=== PATIENT | male | born 1975 | race Caucasian/White ===

== ENCOUNTER 2018-02-17 10:50 | Inpatient (IN) | payer OTHER ==
[2018-02-17] MEDS ORDERED: ACETAMINOPHEN TAB 500 MG TAB PO STA (11:27)
[2018-02-17] MEDS ORDERED: SODIUM CHLORIDE 0.9% 1,000 ML IV STA (11:27)
--- NOTE | 2018-02-17 11:39 | ED ---
General Adult HPI - General Chief complaint: Abdominal Pain Stated complaint: poss flu Time Seen by Provider: 02/17/18 11:12 Source: patient Mode of arrival: ambulatory Limitations: no limitations - Related Data Home Medications Medication Instructions Recorded Confirmed [id number] 2 tab PO Q4HR PRN 02/17/18 02/17/18 [Excedrin] Ibuprofen [Motrin Ib] 800 mg PO Q6H PRN 02/17/18 02/17/18 Allergies Allergy/AdvReac Type Severity Reaction Status Date / Time No Known Allergies Allergy Verified 02/17/18 11:00 Review of Systems ROS Statement: Those systems with pertinent positive or pertinent negative responses have been documented in the HPI. ROS Other: All systems not noted in ROS Statement are negative. Past Medical History Past Medical History: No Reported History History of Any Multi-Drug Resistant Organisms: None Reported Past Surgical History: Hernia Repair Past Psychological History: No Psychological Hx Reported Smoking Status: Former smoker Past Alcohol Use History: Rare Past Drug Use History: None Reported General Exam Limitations: no limitations Course Vital Signs 02/17/18 10:52 Temperature 101 F H Pulse Rate 97 Respiratory 20 Rate Blood Pressure 147/97 O2 Sat by Pulse 99 Oximetry Medical Decision Making - Medical Decision Making Labs been reviewed and does show elevated bilirubin and alk phos along with liver enzymes. This appears new compared to previous labs. Patient states is not a drinker. He does admit that he's had some nausea vomiting over the last few days. Patient denies any specific abdominal pain. Ultrasound was obtained showing no evidence of cholecystitis. No cholelithiasis. Results were discussed with the patient. Results discussed with attending physician Dr. Almendarez did discuss with GI doctor Marie does recommend admission. Hepatitis panel is pending at this time. Patient will be admitted to Dr. Scanlon with consult to GI. - Lab Data Result diagrams: 02/17/18 11:30 02/17/18 11:30 Lab Results 02/17/18 02/17/18 02/17/18 Range/Units 11:30 11:30 11:30 WBC 7.3 (3.8-10.6) k/uL RBC 5.53 (4.30-5.90) m/uL Hgb 15.7 (13.0-17.5) gm/dL Hct 47.0 (39.0-53.0) % MCV 85.0 (80.0-100.0) fL MCH 28.4 (25.0-35.0) pg MCHC 33.4 (31.0-37.0) g/dL RDW 13.7 (11.5-15.5) % Plt Count 133 L (150-450) k/uL Neutrophils % 87 % Lymphocytes % 3 % Monocytes % 7 % Eosinophils % 1 % Basophils % 0 % Neutrophils # 6.4 (1.3-7.7) k/uL Lymphocytes # 0.3 L (1.0-4.8) k/uL Monocytes # 0.5 (0-1.0) k/uL Eosinophils # 0.1 (0-0.7) k/uL Basophils # 0.0 (0-0.2) k/uL Sodium 137 (137-145) mmol/L Potassium 3.9 (3.5-5.1) mmol/L Chloride 99 (98-107) mmol/L Carbon Dioxide 29 (22-30) mmol/L Anion Gap 9 mmol/L BUN 13 (9-20) mg/dL Creatinine 0.99 (0.66-1.25) mg/dL Est GFR (CKD-EPI)AfAm >90 (>60 ml/min/1.73 sqM) Est GFR (CKD-EPI)NonAf >90 (>60 ml/min/1.73 sqM) Glucose 119 H (74-99) mg/dL Plasma Lactic Acid Lul 1.2 (0.7-2.0) mmol/L Calcium 9.1 (8.4-10.2) mg/dL Total Bilirubin 5.0 H (0.2-1.3) mg/dL AST 132 H (17-59) U/L ALT 276 H (21-72) U/L Alkaline Phosphatase 227 H (38-126) U/L Total Protein 7.5 (6.3-8.2) g/dL Albumin 4.0 (3.5-5.0) g/dL Amylase 58 (30-110) U/L Lipase 66 (23-300) U/L Urine Color Urine Appearance (Clear) Urine pH (5.0-8.0) Ur Specific [place] (1.001-1.035) Urine Protein (Negative) Urine Glucose (UA) (Negative) Urine Ketones (Negative) Urine Blood (Negative) Urine Nitrite (Negative) Urine Bilirubin (Negative) Urine Urobilinogen (<2.0) mg/dL Ur Leukocyte Esterase (Negative) Urine RBC (0-5) /hpf Urine WBC (0-5) /hpf Ur Squamous Epith Cells (0-4) /hpf Urine Mucus (None) /hpf Influenza Type A RNA (Not Detectd) Influenza Type B (PCR) (Not Detectd) 02/17/18 02/17/18 Range/Units 12:10 12:48 WBC (3.8-10.6) k/uL RBC (4.30-5.90) m/uL Hgb (13.0-17.5) gm/dL Hct (39.0-53.0) % MCV (80.0-100.0) fL MCH (25.0-35.0) pg MCHC (31.0-37.0) g/dL RDW (11.5-15.5) % Plt Count (150-450) k/uL Neutrophils % % Lymphocytes % % Monocytes % % Eosinophils % % Basophils % % Neutrophils # (1.3-7.7) k/uL Lymphocytes # (1.0-4.8) k/uL Monocytes # (0-1.0) k/uL Eosinophils # (0-0.7) k/uL Basophils # (0-0.2) k/uL Sodium (137-145) mmol/L Potassium (3.5-5.1) mmol/L Chloride (98-107) mmol/L Carbon Dioxide (22-30) mmol/L Anion Gap mmol/L BUN (9-20) mg/dL Creatinine (0.66-1.25) mg/dL Est GFR (CKD-EPI)AfAm (>60 ml/min/1.73 sqM) Est GFR (CKD-EPI)NonAf (>60 ml/min/1.73 sqM) Glucose (74-99) mg/dL Plasma Lactic Acid Lul (0.7-2.0) mmol/L Calcium (8.4-10.2) mg/dL Total Bilirubin (0.2-1.3) mg/dL AST (17-59) U/L ALT (21-72) U/L Alkaline Phosphatase (38-126) U/L Total Protein (6.3-8.2) g/dL Albumin (3.5-5.0) g/dL Amylase (30-110) U/L Lipase (23-300) U/L Urine Color Dark Brown Urine Appearance Clear (Clear) Urine pH 6.0 (5.0-8.0) Ur Specific [place] 1.036 H (1.001-1.035) Urine Protein 2+ H (Negative) Urine Glucose (UA) Negative (Negative) Urine Ketones 3+ H (Negative) Urine Blood Trace H (Negative) Urine Nitrite Negative (Negative) Urine Bilirubin 3+ H (Negative) Urine Urobilinogen 8.0 (<2.0) mg/dL Ur Leukocyte Esterase Negative (Negative) Urine RBC 7 H (0-5) /hpf Urine WBC 4 (0-5) /hpf Ur Squamous Epith Cells <1 (0-4) /hpf Urine Mucus Many H (None) /hpf Influenza Type A RNA Not Detected (Not Detectd) Influenza Type B (PCR) Not Detected (Not Detectd) Disposition Clinical Impression: Nausea & vomiting, Elevated liver enzymes Disposition: ADMITTED IP TO THIS [facility] Condition: Good Is patient prescribed a controlled substance at d/c from ED?: No Referrals: Steve Scanlon DO [Primary Care Provider] - 1-2 days Time of Disposition: 14:50
[2018-02-17] MEDS ORDERED: ONDANSETRON 4 MG/2 ML VIAL IVP STA (11:49)
[2018-02-17 12:24] LABS: Basophils % (A) 0 %; Eosinophils # (A) 0.1 k/uL (0-0.7); Eosinophils % (A) 1 %; HGB 15.7 gm/dL (13.0-17.5); Lymphocytes # (A) 0.3 k/uL (1.0-4.8); Lymphocytes % (A) 3 %; MCH 28.4 pg (25.0-35.0); MCHC 33.4 g/dL (31.0-37.0); Mean Platelet Volume 7.4; Monocytes # (A) 0.5 k/uL (0-1.0); Monocytes % (A) 7 %; Neutrophils # (A) 6.4 k/uL (1.3-7.7); Neutrophils % (A) 87 %; Platelet Count 133 k/uL (150-450); RBC 5.53 m/uL (4.30-5.90); RDW 13.7 % (11.5-15.5); WBC 7.3 k/uL (3.8-10.6)
[2018-02-17 12:32] LABS: ALT 276 U/L (21-72); AST 132 U/L (17-59); Alkaline Phosphatase 227 U/L (38-126); Amylase 58 U/L (30-110); Anion Gap 9 mmol/L; Blood Urea Nitrogen 13 mg/dL (9-20); Calcium 9.1 mg/dL (8.4-10.2); Carbon Dioxide 29 mmol/L (22-30); Chloride 99 mmol/L (98-107); Glucose 119 mg/dL (74-99); Lipase 66 U/L (23-300); Potassium 3.9 mmol/L (3.5-5.1); Sodium 137 mmol/L (137-145); Total Protein 7.5 g/dL (6.3-8.2)
[2018-02-17 13:19] LABS: Appearance,Urine Clear (Clear); Bilirubin,Urine 3+ (Negative); Blood,Urine Trace (Negative); Color,Urine Dark Brown; Glucose,Urine (UA) Negative (Negative); Ketones,Urine 3+ (Negative); Leukocyte Esterase,Urine Negative (Negative); Mucus,Urine Many /hpf; Nitrite,Urine Negative (Negative); Protein,Urine 2+ (Negative); RBC,Urine 7 /hpf (0-5); Specific Gravity,Urine 1.036 (1.001-1.035); Squamous Epithelial Cell,Urine <1 /hpf (0-4)
--- NOTE | 2018-02-17 14:08 | US ---
EXAMINATION TYPE: US abdomen limited DATE OF EXAM: 02/17/2018 COMPARISON: NONE CLINICAL HISTORY: Pain. Nausea and vomiting. Elevated liver enzymes. patient ate 5 hours prior to exa m EXAM MEASUREMENTS: Liver Length: 16.5 cm Gallbladder Wall: 0.3 cm CBD: 0.4 cm Right Kidney: 11.6 x 6.2 x 4.8 cm Technical limitations due to large amount of overlying bowel content Pancreas: Obscured by bowel gas Liver: There is increased echogenicity of the hepatic parenchyma with diminished visualization of th e portal triads most commonly relating to hepatic steatosis and limiting evaluation for underlying he patic masses. Gallbladder: limited evaluation, contracted Evidence for sonographic Blackman's sign: no CBD: wnl as visualized Right Kidney: no evidence of hydronephrosis IMPRESSION: 1. The gallbladder is slightly contracted likely accounting for the prominent size of the gallbladder wall circumferentially. No common bile duct dilation or pericholecystic fluid to suggest acute mahamed cystitis. HIDA scan with CCK could assess for biliary dysfunction. 2. Findings suggesting mild degree hepatic steatosis.
[2018-02-17] MEDS ORDERED: NALOXONE 0.4 MG/ML 1 ML VIAL IV PRN (14:50)
[2018-02-17] MEDS ORDERED: SODIUM CHLORIDE 0.9% 1,000 ML IV ONE (14:50)
[2018-02-17 15:36] LABS: Hepatitis A AB IgM Index 0.01; Hepatitis A Antibody IgM NEGATIVE
[2018-02-17] MEDS: IBUPROFEN 600 MG TAB PO PRN (16:34)
[2018-02-17 18:42] LABS: Hepatitis B Core IgM Non-Reactive (Non-Reactive)
[2018-02-17] MEDS: ONDANSETRON 4 MG/2 ML VIAL IVP PRN (22:40)
[2018-02-18] MEDS: IBUPROFEN 600 MG TAB PO PRN ×3 (03:55→20:28)
[2018-02-18 07:16] LABS: INR 1.2 (<1.2); Prothrombin Time 12.4 sec (9.0-12.0)
[2018-02-18 07:27] LABS: ALT 182 U/L (21-72); AST 89 U/L (17-59); Albumin 3.1 g/dL (3.5-5.0); Alkaline Phosphatase 185 U/L (38-126); Anion Gap 8 mmol/L; Blood Urea Nitrogen 11 mg/dL (9-20); Calcium 8.1 mg/dL (8.4-10.2); Carbon Dioxide 27 mmol/L (22-30); Chloride 104 mmol/L (98-107); Glucose 131 mg/dL (74-99); Potassium 3.9 mmol/L (3.5-5.1); Sodium 139 mmol/L (137-145); Total Bilirubin 4.7 mg/dL (0.2-1.3); Total Protein 6.2 g/dL (6.3-8.2)
[2018-02-18 07:46] LABS: HCT 43.5 % (39.0-53.0); HGB 13.8 gm/dL (13.0-17.5); MCH 28.1 pg (25.0-35.0); MCHC 31.7 g/dL (31.0-37.0); MCV 88.6 fL (80.0-100.0); Mean Platelet Volume 7.8; Platelet Count 103 k/uL (150-450); RBC 4.92 m/uL (4.30-5.90); WBC 4.7 k/uL (3.8-10.6)
[2018-02-18 08:20] LABS: Band Neutrophils % 1 %; Lymphocytes # (M) 0.28 k/uL (1.0-4.8); Monocytes # (M) 0.28 k/uL (0-1.0); Neutrophils % (M) 87 %; Nucleated Red Blood Cells 0 /100 WBC (0-0); Total Cells Counted 100
[2018-02-18] MEDS: ONDANSETRON 4 MG/2 ML VIAL IVP PRN (11:07)
--- NOTE | 2018-02-18 11:31 | CONS ---
CONSULTATION DATE OF DICTATION: 02/18/2018 REASON FOR CONSULTATION: Abdominal pain and elevated LFTs. HISTORY OF PRESENT ILLNESS: The patient is a 42-year-old pleasant white male who came into the emergency room yesterday complaining of generalized abdominal pain with body aches and flu-like symptoms for the last 3 days' duration. Pain was mostly in the epigastric area and he had a low-grade fever associated with nausea and vomiting. Symptoms continued to persist and he started having dark-colored urine and hence came to the emergency room yesterday and was noted to have elevated LFTs and jaundice with a bilirubin of 5, AST of 132, ALT of 276 and alkaline phosphatase of 227. He was subsequently admitted to the hospital for further evaluation. He did have ultrasound of the gallbladder done that did not show any evidence of gallstones or biliary ductal dilation. The patient never had these symptoms in the past. Denies any new medications that were started recently. He denies any cmyd-eop-xazqgfp herbal medications. PAST MEDICAL HISTORY: Unremarkable. MEDICATIONS: Medications at home include multivitamin and Motrin as needed. ALLERGIES: NO KNOWN DRUG ALLERGIES. SOCIAL HISTORY: No smoking. No alcohol use. FAMILY HISTORY: Unremarkable. PAST SURGICAL HISTORY: Hernia repair. REVIEW OF SYSTEMS: CARDIOPULMONARY: No chest pain, shortness of breath. GENITOURINARY: No dysuria, hematuria. MUSCULOSKELETAL: Unremarkable. SKIN: Unremarkable. ENDOCRINE: Unremarkable. NEUROLOGY: Unremarkable. ENT/VISION: Unremarkable. CONSTITUTIONAL: No recent weight loss. No fever, chills, night sweats. PHYSICAL EXAMINATION: He appears comfortable. No apparent distress. Vital signs are stable. Blood pressure is 132/68, pulse rate 87, temperature 99.4. HEENT EXAMINATION: Unremarkable. Conjunctivae are pink, sclerae anicteric. Oral cavity with no lesions. NECK: No JVD or lymph node enlargement. Chest was clear to auscultation. HEART: Regular rate and rhythm. ABDOMEN: Soft. Mild tenderness in the epigastric area. Bowel sounds are positive. No organomegaly. EXTREMITIES: No pedal edema. SKIN: No rashes. NEUROLOGIC: Alert and oriented x3. No focal deficits. LABS: WBC 7.3, hemoglobin 15.7, platelets 133. Total bilirubin is 5, AST 132, ALT 276, alkaline phosphatase 227. Today total bilirubin is 4.7, AST 89, ALT 182, alkaline phosphatase 185. Hepatitis serologies for A, B and C were negative. Influenza A and B negative. Ultrasound of the gallbladder showed no evidence of gallstones. The gallbladder was slightly contracted. No biliary ductal dilation. IMPRESSION: This is a patient who presents to the hospital with diffuse abdominal pain, mostly in the epigastric area, associated with body aches and low-grade fever associated with nausea, vomiting for the last 3 days' duration, noted to have elevated liver function tests and jaundice with a bilirubin of 5 and ALT and AST in the range of 200. Ultrasound did not show any evidence of gallstones or biliary ductal dilation. At this time it is unclear if we are dealing with a biliary pathology or acute hepatitis. Hepatitis serologies for A, B and C are negative. Patient is feeling much better today. Liver enzymes are improving and the bilirubin is down to 4.7. RECOMMENDATIONS: 1. To investigate this further, I will schedule him for an MRCP to rule out CBD stone/gallstones. 2. Repeat labs in the morning. 3. Obtain serology and CMP serology. We will follow him closely during his hospital stay. Thank you for this consultation. MMODL / IJN: [id number] /
--- NOTE | 2018-02-18 13:15 | P.HPIM ---
History of Present Illness H&P Date: 02/18/18 Chief Complaint: Nausea vomiting and abdominal pain Mr. De Oliveira is a 42-year-old male with no significant most medical history coming in to the emergency Department with the chief complaint of nausea vomiting and abdominal pain for the past 3 days. Patient states that he started to feel nauseous on Tuesday morning and threw up couple of times and he also had low-grade fever. He complains of pain mostly in the epigastric region, with no radiation. No aggravating or relieving factors. Patient denies having any lower abdominal pain, constipation or diarrhea. No recent use of any new medications. Patient denies having any family history of GI malignancies. He denies having alcohol abuse/and he does not drink. In the ER patient was found to have elevated LFTs. He had an ultrasound of the abdomen that was negative for any gallstones. So he has been admitted for further workup. Review of Systems REVIEW OF SYSTEMS: PSYCH: No anxiety or depression NEURO:No c/o weakness of the extremties, No facial droop, No speech abnormalities. VASCULAR: Peripheral nervous system within the normal limits no edema HEMATOLOGIC: No history of easy bleeding and bruising . No recent infections . RESPIRATORY: No cough, No SOB, No chest discomfort. IMMUNE: No infections INTEGUMENT: no rashes OPHTHALMOLOGIC: No blurry vision and no eye discharge : No dysuria or hematuria CARDIAC: No chest pain , shortness of breath , paroxysmal nocturnal dyspnea MUSCULOSKELETAL : No Aches or pains in the joints or muscles. GI: As per HPI Past Medical History Past Medical History: No Reported History History of Any Multi-Drug Resistant Organisms: None Reported Past Surgical History: Hernia Repair Past Psychological History: No Psychological Hx Reported Smoking Status: Never smoker Past Alcohol Use History: Rare Past Drug Use History: None Reported Medications and Allergies Home Medications Medication Instructions Recorded Confirmed Type [id number] 2 tab PO Q4HR PRN 02/17/18 02/17/18 History [Excedrin] Ibuprofen [Motrin Ib] 800 mg PO Q6H PRN 02/17/18 02/17/18 History Allergies Allergy/AdvReac Type Severity Reaction Status Date / Time No Known Allergies Allergy Verified 02/17/18 11:00 Physical Exam Vitals: Vital Signs Temp Pulse Pulse Resp BP BP Pulse Ox 02/18/18 06:12 98.6 F 66 16 119/58 97 02/17/18 23:00 99.4 F 87 16 127/68 98 02/17/18 16:17 99.0 F 80 18 132/73 98 02/17/18 15:50 98.9 F 90 16 139/84 99 02/17/18 14:00 89 16 140/89 100 Intake and Output 02/17/18 02/18/18 02/18/18 22:59 06:59 14:59 Other: # Voids 1 3 GENERAL EXAM GEN. APPEARANCE: alert, in no apparent distress HEAD EXAM: atraumatic, normocephalic, normal inspection EYE EXAM: normal appearance, PERRL, EOMI. Absent: scleral icterus, conjunctival injection, periorbital swelling ENT EXAM: normal exam, mucous membranes moist NECK EXAM: normal inspection. Absent: tenderness, meningismus, full ROM, lymphadenopathy RESPIRATORY EXAM: normal lung sounds bilaterally. Absent: respiratory distress , wheezes, rales, rhonchi, stridor CARDIOVASCULAR EXAM: regular rate, normal rhythm, normal heart sounds. Absent : systolic murmur, diastolic murmur, rubs, gallop, clicks GI/ABDOMINAL EXAM: soft, normal bowel sounds. Absent: distended, tenderness, guarding. Mild tenderness in the epigastric region. No organomegaly. EXTREMITIES EXAM: normal inspection, full ROM, normal capillary refill. Absent : tenderness, pedal edema, joint swelling, calf tenderness NEUROLOGICAL EXAM: alert, oriented X3, no focal neurological deficits on gross exam PSYCHIATRIC EXAM: normal affect, normal mood SKIN EXAM: warm, dry, intact, normal color. Absent: rash Results CBC & Chem 7: 02/18/18 06:47 02/18/18 06:47 Labs: Abnormal Lab Results - Last 24 Hours (Table) 02/17/18 02/18/18 02/18/18 Range/Units 12:48 06:47 06:47 Plt Count 103 L (150-450) k/uL Lymphocytes # (Manual) 0.28 L (1.0-4.8) k/uL PT (9.0-12.0) sec INR (<1.2) Glucose 131 H (74-99) mg/dL Calcium 8.1 L (8.4-10.2) mg/dL Total Bilirubin 4.7 H (0.2-1.3) mg/dL AST 89 H (17-59) U/L ALT 182 H (21-72) U/L Alkaline Phosphatase 185 H (38-126) U/L Total Protein 6.2 L (6.3-8.2) g/dL Albumin 3.1 L (3.5-5.0) g/dL Ur Specific [place] 1.036 H (1.001-1.035) Urine Protein 2+ H (Negative) Urine Ketones 3+ H (Negative) Urine Blood Trace H (Negative) Urine Bilirubin 3+ H (Negative) Urine RBC 7 H (0-5) /hpf Urine Mucus Many H (None) /hpf 02/18/18 Range/Units 06:47 Plt Count (150-450) k/uL Lymphocytes # (Manual) (1.0-4.8) k/uL PT 12.4 H (9.0-12.0) sec INR 1.2 H (<1.2) Glucose (74-99) mg/dL Calcium (8.4-10.2) mg/dL Total Bilirubin (0.2-1.3) mg/dL AST (17-59) U/L ALT (21-72) U/L Alkaline Phosphatase (38-126) U/L Total Protein (6.3-8.2) g/dL Albumin (3.5-5.0) g/dL Ur Specific [place] (1.001-1.035) Urine Protein (Negative) Urine Ketones (Negative) Urine Blood (Negative) Urine Bilirubin (Negative) Urine RBC (0-5) /hpf Urine Mucus (None) /hpf Thrombosis Risk Factor Assmnt - Choose All That Apply Each Factor Represents 1 point: Age 41-60 years Thrombosis Risk Factor Assessment Total Risk Factor Score: 1 Thrombosis Risk Factor Assessment Level: Low Risk Assessment and Plan Assessment: ASSESSMENT Transaminitis Hyperbilirubinemia Thrombocytopenia Hypoalbuminemia Plan: Patient had an ultrasound of the abdomen that was negative for any biliary pathology. So we will check for acute hepatitis with the hepatitis panel and a GI consult was of pain. Patient is scheduled for an MRCP by Dr. Salazar. Further recommendations depending on the progress of the patient.
--- NOTE | 2018-02-18 17:49 | MR ---
MRCP HISTORY: Elevated liver function tests and jaundice, rule out common bile duct stone Multiplanar multisequence imaging obtained through the liver with three-dimensional reconstructions p erformed through the biliary system Correlation ultrasound abdomen 02/17/2018 Signal drop on out of phase imaging within the liver is compatible with hepatic steatosis. Gallbladde r shows no abnormal luminal signal abnormality, no evident choledocholithiasis, bile duct show diminu tive caliber. At the confluence of the left and right hepatic ducts there is a bulbus appearance note d which may represent a normal variant or possibly small choledochal or localized hepatic cyst. Gallb ladder is somewhat contracted. There is no ascites. Adrenal glands are normal. Kidneys show no hydronephrosis. Spleen is enlarged. P ancreas shows no mass or dilated pancreatic duct. Aorta is not aneurysmal. No retroperitoneal adenopa thy or ascites. Lung bases show no pleural effusion. IMPRESSION: Cystic appearance of the confluence of the left and right hepatic ducts as described. Spl enomegaly. Suspect hepatic steatosis. No retained stone is evident.
[2018-02-19] MEDS: IBUPROFEN 600 MG TAB PO PRN ×2 (03:16→09:02)
[2018-02-19 07:36] VITALS: BP 111/71; PULSE 57; RESP 16; TEMP 98.5
[2018-02-19 08:51] LABS: ALT 152 U/L (21-72); AST 78 U/L (17-59); Albumin 2.8 g/dL (3.5-5.0); Alkaline Phosphatase 163 U/L (38-126); Anion Gap 5 mmol/L; Blood Urea Nitrogen 11 mg/dL (9-20); Carbon Dioxide 30 mmol/L (22-30); Chloride 103 mmol/L (98-107); Glucose 105 mg/dL (74-99); Potassium 3.6 mmol/L (3.5-5.1); Sodium 138 mmol/L (137-145); Total Bilirubin 4.8 mg/dL (0.2-1.3); Total Protein 5.8 g/dL (6.3-8.2)
[2018-02-19 08:55] LABS: HCT 40.6 % (39.0-53.0); MCH 27.8 pg (25.0-35.0); MCHC 31.9 g/dL (31.0-37.0); Mean Platelet Volume 7.6; Platelet Count 101 k/uL (150-450); RBC 4.67 m/uL (4.30-5.90); RDW 14.1 % (11.5-15.5); WBC 4.1 k/uL (3.8-10.6)
[2018-02-19 10:15] LABS: Bilirubin, Conjugated 2.1 mg/dL (0.0-0.3); Bilirubin, Delta 2.1 mg/dL (0.0-0.2); Bilirubin,Unconjugated 0.6 mg/dL (0.0-1.1)
--- NOTE | 2018-02-19 11:23 | P.DS ---
Providers Date of admission: 02/17/18 15:14 Expected date of discharge: 02/19/18 Attending physician: Steve Scanlon Consults: 02/17/18 14:50 Consult Physician Stat Consulting Provider: Vijaya Salazar Consult Reason/Comments: Elevated liver enzymes Do you want consulting provider notified?: Yes Primary care physician: Steve Scanlon [facility] Course: Mr. De Oliveira is a 42-year-old male with no significant most medical history coming in to the emergency Department with the chief complaint of nausea vomiting and abdominal pain for the past 3 days. Patient states that he started to feel nauseous on Tuesday morning and threw up couple of times and he also had low-grade fever. He complains of pain mostly in the epigastric region, with no radiation. No aggravating or relieving factors. Patient denies having any lower abdominal pain, constipation or diarrhea. No recent use of any new medications. Patient denies having any family history of GI malignancies. He denies having alcohol abuse/and he does not drink. In the ER patient was found to have elevated LFTs. He had an ultrasound of the abdomen that was negative for any gallstones. So he has been admitted for further workup. In the hospital patient had MRCP done - the results of which was showing cystic appearance of the confluence of the left and right hepatic ducts. Splenomegaly. Suspect hepatic steatosis. No retained stone is evident. Today the patient is lying comfortably in the bed appears to be no acute distress. Patient has been tolerating clear liquids since yesterday. He was evaluated by Dr. Salazar this morning and was told that if he is able to tolerate by mouth, he can be discharged and to follow up with her outpatient. Vital Signs - 24 hr 02/18/18 02/18/18 02/19/18 14:33 23:00 07:24 Temperature 100.9 F H 99.2 F 98.5 F Pulse Rate [ 85 63 57 L Pulse Oximetery ] Respiratory 16 17 16 Rate Blood Pressure 145/70 119/58 111/71 [Left Arm] O2 Sat by Pulse 96 98 98 Oximetry Physical examination General examination-patient is lying comfortably in bed appears to be no acute distress Eyes-mild icterus Respiratory-bilateral breath sounds are positive. No wheeze or crackles. CVS S1 and S2 heard. No additional sounds. GI-soft, nontender. No epigastric tenderness. 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 No focal neurological deficits. DISCHARGE DIAGNOSIS Transaminitis Hyperbilirubinemia Thrombocytopenia Hypoalbuminemia Plan: Patient had an ultrasound of the abdomen that was negative for any biliary pathology. An MRCP done showing no evidence of stone. Patient's abdominal pain and nausea resolving. He is able to tolerate by mouth. Patient will be discharged home later today to have a follow-up visit with Dr. Salazar in 3-4 days. This was discussed with the patient in detail and if his symptoms recur advised to come back to the ER. More than 30 minutes spent towards discharge with the patient. Patient Condition at Discharge: Good Plan - Discharge Summary New Discharge Prescriptions: No Action Ibuprofen [Motrin Ib] 800 mg PO Q6H PRN PRN Reason: Pain Kihfhiw-Wgqr-Gtob [id number] [Excedrin] 2 tab PO Q4HR PRN PRN Reason: Pain Discharge Medication List [id number] [Excedrin] 2 tab PO Q4HR PRN 02/17/18 [History] Ibuprofen [Motrin Ib] 800 mg PO Q6H PRN 02/17/18 [History] Follow up Appointment(s)/Referral(s): Steve Scanlon DO [Primary Care Provider] - 1-2 days
[2018-02-19 11:42] LABS: Band Neutrophils % 6 %; Eosinophils # (M) 0.04 k/uL (0-0.7); Lymphocytes # (M) 0.82 k/uL (1.0-4.8); Monocytes # (M) 0.53 k/uL (0-1.0); Neutrophils % (M) 60 %; Nucleated Red Blood Cells 0 /100 WBC (0-0); Total Cells Counted 100
--- NOTE | 2018-02-19 11:59 | PN ---
PROGRESS NOTE DATE OF SERVICE: 02/19/2018. HISTORY: The patient is a 42-year-old pleasant white male admitted to the hospital with flu-like symptoms and abdominal pain for the last one week duration. He had elevated liver enzymes as well as T bilirubin up to 5.5 g/dL. He had hepatitis serologies for A, B, and C which were negative. Ultrasound and CT scan did not show any evidence of gallstones. He had MRCP done last night, which showed no evidence of biliary ductal dilation or filling defects noted. There was some cystic dilation at the junction of the right and hepatic duct. Possibility of choledochocele could not be excluded. The patient is feeling better. Some abdominal pain, but no symptoms. No fever, chills, or night sweats. PHYSICAL EXAMINATION: Appears comfortable, in no apparent distress. Vital signs are stable. Blood pressure 190/58, pulse rate 63, temperature 99. HEENT examination is unremarkable. Conjunctivae pink. Sclerae nonicteric. Oral cavity no lesions. Neck, no JVD or lymph node enlargement. Chest is clear to auscultation. Heart has a regular rate and rhythm. Abdomen is soft. Mild tenderness in the epigastric area. Bowel sounds are positive. No organomegaly. Extremities, no pedal edema. Skin no rashes. Neurologic, alert and oriented x3. No focal deficits. LABS: From today, T bilirubin is 4.8, AST 78, ALT is 152, alkaline phosphatase 163. Hepatitis A, B, and C are negative. Platelets are 101,000. IMPRESSION: This is a patient who presented to the hospital with flu-like symptoms for the last 3 or 4 days duration, followed by elevated liver function tests, consistent with acute hepatitis, most likely viral in etiology. Hepatitis A, B, and C are negative. Ultrasound of the abdomen did not show any evidence of gallstones. MRCP did not show any gallstones or biliary ductal dilation. RECOMMENDATION: 1. Obtain EBV and CMV serologies. 2. Advance diet as tolerated. 3. Since the patient is doing well, clinically he can be discharged home today or tomorrow with close outpatient followup within a week. Thank you for this consultation. MMODL / IJN: [id number] /
== END 2018-02-19 14:20 | disposition home or self-care (01) | DRG 948 ==
LOC: EC 10:50 → 4MS4W 15:14
PROVIDERS: ADMIT Family Medicine; ATTEND Family Medicine
DX: R74.0 Nonspecific elevation of levels of transaminase and lactic acid dehydrogenase [LDH] (principal); R17 Unspecified jaundice; D69.6 Thrombocytopenia, unspecified; E88.09 Other disorders of plasma-protein metabolism, not elsewhere classified; Z87.891 Personal history of nicotine dependence
CPT/HCPCS: 36415; 74181; 76705; 80053; 80074; 81001; 82150; 82248; 83605; 83690; 85025; 85610; 86038; 86665; 87040; 87502; 96361; 96374; 99285

== ENCOUNTER → 2018-03-03 | Outpatient (CLI) | payer OTHER ==
[2018-03-03 16:08] LABS: Albumin 4.4 g/dL (3.80-4.90); Albumin/Globulin Ratio 1.69 (1.20-2.10); Anion Gap 8.5 mmol/L (4.00-12.00); Calcium 9.7 mg/dL (8.7-10.3); Carbon Dioxide 27.5 mmol/L (21.6-31.8); Globulin 2.6 g/dL (1.6-3.3); Potassium 4.4 mmol/L (3.5-5.5); Total Bilirubin 1.1 mg/dL (0.3-1.2)
== END | disposition home or self-care (01) ==
LOC: LABWHC1 09:00
PROVIDERS: ATTEND Internal Medicine Gastroenterology
DX: R94.5 Abnormal results of liver function studies (principal)
CPT/HCPCS: 36415; 80053

== ENCOUNTER → 2018-05-30 | Outpatient (CLI) | payer OTHER ==
[2018-05-30 17:20] LABS: Albumin 4.3 g/dL (3.80-4.90); Albumin/Globulin Ratio 1.79 (1.60-3.17); Anion Gap 7.8 mmol/L (4.00-12.00); Calcium 9.4 mg/dL (8.7-10.3); Carbon Dioxide 28.2 mmol/L (21.6-31.8); Globulin 2.4 g/dL (1.6-3.3); Potassium 4.7 mmol/L (3.5-5.5); Total Bilirubin 0.5 mg/dL (0.2-1.2); Total Protein 6.7 g/dL (6.2-8.2)
== END | disposition home or self-care (01) ==
LOC: LABWHC1 09:46
PROVIDERS: ATTEND Internal Medicine Gastroenterology
DX: R94.5 Abnormal results of liver function studies (principal)
CPT/HCPCS: 36415; 80053

== ENCOUNTER → 2019-11-30 | Outpatient (CLI) | payer BC | END | disposition home or self-care (01) | LOC: LABWHC1 16:13 | PROVIDERS: ATTEND Family Medicine | DX: Z20.828 Contact with and (suspected) exposure to other viral communicable diseases (principal) ==